=== PATIENT | female | born 1945 ===

== ENCOUNTER 2018-02-01 10:15 | Inpatient (IN) | payer MEDICARE, BC ==
[2018-02-01 10:15] VITALS: BMI 36.6
[2018-02-01] MEDS ORDERED: Sodium Chloride 0.9% 500 ML IV STA (10:50)
[2018-02-01 11:18] LABS: BASO % 0.9 % (0.0-2.0); EOS # 0.1 K/uL (0.0-0.7); EOS % 2.9 % (0.0-4.0); HEMOGLOBIN 13.7 g/dL (11.0-16.0); MEAN CELL VOLUME 92.6 fL (81.0-99.0); MEAN CORPUSCULAR HGB CONC 34.5 g/dL (33.0-37.0); MEAN PLATELET VOLUME 8.5 fL (7.2-11.7); MONO # 0.4 K/uL (0.0-0.8); MONO % 8.4 % (0.0-10.0); NEUT # 3.5 K/uL (1.8-7.0); NEUT % 67.8 % (50.0-75.0); RBC 4.27 Mil/uL (3.80-5.20); RED CELL DISTRIBUTION WIDTH 12.9 % (11.5-14.5); WHITE BLOOD COUNT 5.2 K/uL (4.8-10.8)
[2018-02-01 11:25] LABS: PROTHROMBIN TIME 11.3 SECONDS (9.7-12.2)
[2018-02-01 11:37] LABS: GFR AFRICAN-AMERICAN > 60; GFR NON-AFRICAN AMERICAN > 60
--- NOTE | 2018-02-01 11:48 | CT ---
PROCEDURE: CT HEAD WITHOUT CONTRAST. HISTORY: The the Dizziness COMPARISON: None available. TECHNIQUE: Axial computed tomography images were obtained through the head/brain without intravenous contrast. Radiation dose: Total exam DLP = 855.72 mGy-cm. This CT exam was performed using one or more of the following dose reduction techniques: Automated exposure control, adjustment of the mA and/or kV according to patient size, and/or use of iterative reconstruction technique. . FINDINGS: HEMORRHAGE: No acute parenchymal, subarachnoid or extra-axial there hemorrhage. BRAIN: There are a few scattered chronic appearing subcortical ischemic changes both cerebral hemispheres. In addition, there also appears to be some very minimal chronic periventricular white matter ischemic changes. Few tiny chronic bilateral basal nuclei lacunar type infarcts also noted. . Note that the possibility of a small hyperacute infarct cannot be excluded on this exam. Moderate generalized volume loss. . VENTRICLES: No obstructive hydrocephalus. CALVARIUM: There are no acute calvarial fractures. PARANASAL SINUSES: Frontal sinuses are underpneumatized/hypoplastic. . Remaining visualized paranasal sinuses well-developed. No fluid levels seen to suggest acute sinusitis. Minimal mucosal thickening noted within a few ethmoid air cells. MASTOID AIR CELLS: Unremarkable as visualized. No inflammatory changes. OTHER FINDINGS: None. IMPRESSION: No acute intracranial hemorrhage. Mild chronic white matter and basal nuclei ischemic changes as described. . Moderate volume loss.
--- NOTE | 2018-02-01 11:51 | C.PDOC ---
History Of Present Illness 72 y/o female brought to ED by EMS and daughter for evaluation of dizziness developed prior to arrival. As per daughter homemaker called and reported patient was feeling dizzy. At ED patient is not following commands and moving spontaneously. Patient poor historian. HPI limited Time Seen by Provider: 02/01/18 10:25 Chief Complaint (Nursing): Dizziness/Lightheaded History Per: EMS, Family History/Exam Limitations: clinical condition Onset/Duration Of Symptoms: Hrs Current Symptoms Are (Timing): Still Present Past Medical History Reviewed: Historical Data, Nursing Documentation, Vital Signs Vital Signs: Last Vital Signs Temp 97.5 F L 02/01/18 15:00 Pulse 52 L 02/01/18 15:00 Resp 20 02/01/18 15:00 BP 156/78 H 02/01/18 15:00 Pulse Ox 97 02/01/18 18:18 - Medical History PMH: Alzheimer's Disease, Arthritis, Asthma, Diverticulitis, HTN, Hypothyroidism , TIA Surgical History: Tonsillectomy - [facility] Procedures GAIT TRAINING/FUNCTIONAL AMBULATION TREATMENT (10/23/15) HOME MANAGEMENT TREATMENT (10/23/15) INJECT/INFUSE NEC (04/29/15) REPLACE OF L KNEE JT WITH SYNTH SUB, CEMENT, OPEN APPROACH (10/21/15) THERAPEUTIC EXERCISE TREATMENT OF MUSCULOSK LOW BACK/LE (10/23/15) Family History: States: No Known Family Hx - Social History Hx Alcohol Use: No Hx Substance Use: No - Immunization History Hx Tetanus Toxoid Vaccination: No Hx Influenza Vaccination: No Hx Pneumococcal Vaccination: No Review Of Systems Review Of Systems: ROS cannot be obtained secondary to pt's inabilty to answer questions. Physical Exam - Physical Exam Appears: Non-toxic, Other (Uncomfortable) Skin: Warm, Dry, No Rash Head: Atraumatic, Normacephalic Eye(s): bilateral: Normal Inspection Oral Mucosa: Moist Cardiovascular: Rhythm Regular Respiratory: Normal Breath Sounds, No Rales, No Rhonchi, No Wheezing Gastrointestinal/Abdominal: Soft, No Tenderness, No Guarding, No Rebound Neurological/Psych: Eyes Open With Command, Inappropriate Response To Command, Other (Neuro deficit noted) ED Course And Treatment - Laboratory Results Result Diagrams: 02/01/18 11:11 02/01/18 11:11 ECG: Interpreted By Me ECG Rhythm: Sinus Bradycardia ECG Interpretation: No Acute Changes Rate From EC O2 Sat by Pulse Oximetry: 97 (RA) Pulse Ox Interpretation: Normal - Other Rad CXR X-Ray: Viewed By Me, Read By Radiologist Interpretation: Accession No. : [id number]. Patient Name / ID : JOSE EDUARDO MONET / [id number]. Exam Date : 02/01/2018 11:01:12 ( Approved ). Study Comment : Sex / Age : F / 72Y. Creator : Bryan Shipley MD. Dictator : Bryan Shipley MD. Instructor Watch Assembly : [employer] Machine Assembler : Bryan Shipley MD. Approver2 : Report Date : 02/01/2018 12:21:44. My Comment : . PROCEDURE: CHEST RADIOGRAPH, 1 VIEW. HISTORY: dizzy. COMPARISON: None available. FINDINGS: LUNGS: No acute pulmonary disease appreciated bilaterally. PLEURA: No pneumothorax or pleural fluid seen. CARDIOVASCULAR: Prominent cardiac silhouette. Mild cardiomegaly not excluded. Frontal technique likely magnifies cardiac silhouette at least somewhat. OSSEOUS STRUCTURES: Right 7th rib fracture of indeterminate age in this single frontal view. VISUALIZED UPPER ABDOMEN: Normal. OTHER FINDINGS: None. IMPRESSION: Possible cardiomegaly. No pulmonary vascular congestion. No acute pulmonary disease appreciated bilaterally. Right 7th rib fracture noted laterally, age indeterminate. - CT Scan/US Head CT Other Rad Studies (CT/US): Read By Radiologist, Radiology Report Reviewed CT/US Interpretation: Accession No. : [id number]. Patient Name / ID : JOSE EDUARDO MONET / [id number]. Exam Date : 02/01/2018 11:35:30 ( Approved ). Study Comment : Sex / Age : F / 72Y. Creator : Ana Cristina Garza. Dictator : Instructor Watch Assembly : [employer] Machine Assembler : Richard Monge MD. Approver2 : Report Date : 11:38:06. My Comment : . PROCEDURE: CT HEAD WITHOUT CONTRAST. HISTORY: The the Dizziness. COMPARISON: None available. TECHNIQUE: Axial computed tomography images were obtained through the head/brain without intravenous contrast. Radiation dose: Total exam DLP = 855.72 mGy-cm. This CT exam was performed using one or more of the following dose reduction techniques: Automated exposure control, adjustment of the mA and/or kV according to patient size, and/or use of iterative reconstruction technique. . FINDINGS: HEMORRHAGE: No acute parenchymal, subarachnoid or extra-axial there hemorrhage. BRAIN: There are a few scattered chronic appearing subcortical ischemic changes both cerebral hemispheres. In addition, there also appears to be some very minimal chronic periventricular white matter ischemic changes. Few tiny chronic bilateral basal nuclei lacunar type infarcts also noted. . Note that the possibility of a small hyperacute infarct cannot be excluded on this exam. Moderate generalized volume loss. . VENTRICLES: No obstructive hydrocephalus. CALVARIUM: There are no acute calvarial fractures. PARANASAL SINUSES: Frontal sinuses are underpneumatized/hypoplastic. . Remaining visualized paranasal sinuses well-developed. No fluid levels seen to suggest acute sinusitis. Minimal mucosal thickening noted within a few ethmoid air cells. MASTOID AIR CELLS: Unremarkable as visualized. No inflammatory changes. OTHER FINDINGS: None. IMPRESSION: No acute intracranial hemorrhage. Mild chronic white matter and basal nuclei ischemic changes as described. . Moderate volume loss. Progress Note: Plan: EKG, CXR, UA ordered. Antivert and IV fluids administered. - Physician Consult Information Physician Contacted: Luiza Evans Outcome Of Conversation: accepted to [facility] for observation Disposition - Disposition Disposition: HOSPITALIZED Disposition Time: 14:08 Condition: FAIR - Clinical Impression Clinical Impression: Dizziness, Chest pain - PA / WAIT STAFF / Resident Statement MD/DO has reviewed & agrees with the documentation as recorded. - Scribe Statement The provider has reviewed the documentation as recorded by the Scribe Maricsa Arzate All medical record entries made by the Scribe were at my direction and personally dictated by me. I have reviewed the chart and agree that the record accurately reflects my personal performance of the history, physical exam, medical decision making, and the department course for this patient. I have also personally directed, reviewed, and agree with the discharge instructions and disposition. Decision To Admit - Pt Status Changed To: Hospital Disposition Of: Observation - . Bed Request Type: Telemetry Admitting Physician: Luiza Evans Patient Diagnosis: Dizziness, Chest pain
--- NOTE | 2018-02-01 12:23 | RAD ---
PROCEDURE: CHEST RADIOGRAPH, 1 VIEW HISTORY: dizzy COMPARISON: None available. FINDINGS: LUNGS: No acute pulmonary disease appreciated bilaterally. PLEURA: No pneumothorax or pleural fluid seen. CARDIOVASCULAR: Prominent cardiac silhouette. Mild cardiomegaly not excluded. Frontal technique likely magnifies cardiac silhouette at least somewhat. OSSEOUS STRUCTURES: Right 7th rib fracture of indeterminate age in this single frontal view. VISUALIZED UPPER ABDOMEN: Normal. OTHER FINDINGS: None. IMPRESSION: Possible cardiomegaly. No pulmonary vascular congestion. No acute pulmonary disease appreciated bilaterally. Right 7th rib fracture noted laterally, age indeterminate.
[2018-02-01 12:27] LABS: SQUAMOUS EPITHIAL 2 /hpf (0-5); URINE BACTERIA RARE (<OCC); URINE BILIRUBIN NEGATIVE (NEGATIVE); URINE BLOOD 2+ (NEGATIVE); URINE CLARITY Clear (Clear); URINE COLOR Straw (YELLOW); URINE GLUCOSE (UA) NORMAL (Normal); URINE LEUKOCYTE ESTERASE TRACE Leu/uL (Negative); URINE PROTEIN NEGATIVE (NEGATIVE); URINE UROBILINOGEN NORMAL mg/dL (0.2-1.0)
--- NOTE | 2018-02-01 17:17 | RAD ---
PROCEDURE: Left Knee Radiographs. HISTORY: Pain. COMPARISON: None. FINDINGS: BONES: Left total knee arthroplasty. Hardware appears intact without evidence of loosening or infection. There is satisfactory alignment JOINTS: As above JOINT EFFUSION: None. OTHER FINDINGS: None. IMPRESSION: Left total knee arthroplasty. Hardware intact without evidence of failure.
[2018-02-01 19:39] LABS: ALB/GLOB RATIO 1.2 (1.0-2.1); ALBUMIN 3.3 g/dL (3.5-5.0); ALT/SGPT 25 U/L (9-52); AST/SGOT 21 U/L (14-36); BLOOD UREA NITROGEN 14 mg/dL (7-17); CALCIUM 8.7 mg/dl (8.6-10.4)
--- NOTE | 2018-02-01 19:40 | CP.PCM.HP ---
Present on Admission - Present on Admission Any Indicators Present on Admission: No Past Patient History - Infectious Disease Hx of Infectious Diseases: None - Tetanus Immunizations Tetanus Immunization: Unknown - Past Medical History & Family History Past Medical History?: Yes - Past Social History Smoking Status: Never Smoked - CARDIAC Hx Hypertension: Yes - PULMONARY Hx Asthma: Yes - NEUROLOGICAL Hx Alzheimer's Disease: Yes Hx Transient Ischemic Attacks (TIA): Yes - HEENT Hx HEENT Problems: No - RENAL Hx Chronic Kidney Disease: No - ENDOCRINE/METABOLIC Hx Hypothyroidism: Yes - HEMATOLOGICAL/ONCOLOGICAL Hx Blood Disorders: No Hx Human Immunodeficiency Virus (HIV): No - INTEGUMENTARY Hx Dermatological Problems: No - MUSCULOSKELETAL/RHEUMATOLOGICAL Hx Arthritis: Yes - GASTROINTESTINAL Hx Diverticulitis: Yes - GENITOURINARY/GYNECOLOGICAL Hx Genitourinary Disorders: No - PSYCHIATRIC Hx Substance Use: No - SURGICAL HISTORY Hx Tonsillectomy: Yes - ANESTHESIA Hx Anesthesia: Yes Hx Anesthesia Reactions: No Meds Allergies/Adverse Reactions: Allergies Allergy/AdvReac Type Severity Reaction Status Date / Time terbinafine HCl Allergy RASH Verified 02/01/18 10:22 [From Lamisil] famciclovir [From Famvir] AdvReac SHORTNESS Verified 02/01/18 10:46 OF BREATH Physical Exam - Constitutional Appears: Well - Head Exam Head Exam: NORMAL INSPECTION - Eye Exam Eye Exam: Normal appearance - ENT Exam ENT Exam: Mucous Membranes Moist - Respiratory Exam Respiratory Exam: Decreased Breath Sounds - Cardiovascular Exam Cardiovascular Exam: REGULAR RHYTHM, +S1, +S2 - GI/Abdominal Exam GI & Abdominal Exam: Diminished Bowel Sounds - Rectal Exam Rectal Exam: Deferred Results - Vital Signs Recent Vital Signs: Last Vital Signs Temp 97.5 F L 02/01/18 15:00 Pulse 52 L 02/01/18 18:00 Resp 20 02/01/18 15:00 BP 156/78 H 02/01/18 15:00 Pulse Ox 97 02/01/18 18:19 - Labs Result Diagrams: 02/01/18 11:11 02/01/18 11:11 Labs: Laboratory Results - last 24 hr 02/01/18 02/01/18 02/01/18 10:24 11:11 11:11 WBC 5.2 RBC 4.27 Hgb 13.7 Hct 39.6 MCV 92.6 MCH 32.0 H MCHC 34.5 RDW 12.9 Plt Count 212 MPV 8.5 Neut % (Auto) 67.8 Lymph % (Auto) 20.0 Cuming % (Auto) 8.4 Eos % (Auto) 2.9 Baso % (Auto) 0.9 Neut # (Auto) 3.5 Lymph # (Auto) 1.0 Cuming # (Auto) 0.4 Eos # (Auto) 0.1 Baso # (Auto) 0.0 PT INR APTT Sodium 144 Potassium 4.3 Chloride 104 Carbon Dioxide 31 H Anion Gap 13 BUN 14 Creatinine 0.9 Est GFR ( Amer) > 60 Est GFR (Non-Af Amer) > 60 POC Glucose (mg/dL) 94 Random Glucose 110 H Calcium 8.7 Total Bilirubin 0.4 AST 21 ALT 25 Alkaline Phosphatase 57 Total Creatine Kinase 79 CK-MB (Mass) 1.56 Troponin I < 0.0120 Total Protein 6.2 L Albumin 3.3 L Globulin 2.8 Albumin/Globulin Ratio 1.2 Urine Color Urine Clarity Urine pH Ur Specific [place] Urine Protein Urine Glucose (UA) Urine Ketones Urine Blood Urine Nitrate Urine Bilirubin Urine Urobilinogen Ur Leukocyte Esterase Urine WBC (Auto) Urine RBC (Auto) Ur Squamous Epith Cells Urine Bacteria 02/01/18 02/01/18 02/01/18 11:11 12:07 17:34 WBC RBC Hgb Hct MCV MCH MCHC RDW Plt Count MPV Neut % (Auto) Lymph % (Auto) [place] % (Auto) Eos % (Auto) Baso % (Auto) Neut # (Auto) Lymph # (Auto) [place] # (Auto) Eos # (Auto) Baso # (Auto) PT 11.3 INR 1.0 APTT 40 H Sodium Potassium Chloride Carbon Dioxide Anion Gap BUN Creatinine Est GFR ( Amer) Est GFR (Non-Af Amer) POC Glucose (mg/dL) 98 Random Glucose Calcium Total Bilirubin AST ALT Alkaline Phosphatase Total Creatine Kinase CK-MB (Mass) Troponin I Total Protein Albumin Globulin Albumin/Globulin Ratio Urine Color Straw Urine Clarity Clear Urine pH 7.0 Ur Specific [place] 1.008 Urine Protein Negative Urine Glucose (UA) Normal Urine Ketones Negative Urine Blood 2+ H Urine Nitrate Negative Urine Bilirubin Negative Urine Urobilinogen Normal Ur Leukocyte Esterase Trace Urine WBC (Auto) 2 Urine RBC (Auto) 9 H Ur Squamous Epith Cells 2 Urine Bacteria Rare 02/01/18 19:19 WBC RBC Hgb Hct MCV MCH MCHC RDW Plt Count MPV Neut % (Auto) Lymph % (Auto) [place] % (Auto) Eos % (Auto) Baso % (Auto) Neut # (Auto) Lymph # (Auto) [place] # (Auto) Eos # (Auto) Baso # (Auto) PT INR APTT Sodium Potassium Chloride Carbon Dioxide Anion Gap BUN Creatinine Est GFR ( Amer) Est GFR (Non-Af Amer) POC Glucose (mg/dL) Random Glucose Calcium Total Bilirubin AST ALT Alkaline Phosphatase Total Creatine Kinase 79 CK-MB (Mass) Troponin I Total Protein Albumin Globulin Albumin/Globulin Ratio Urine Color Urine Clarity Urine pH Ur Specific [place] Urine Protein Urine Glucose (UA) Urine Ketones Urine Blood Urine Nitrate Urine Bilirubin Urine Urobilinogen Ur Leukocyte Esterase Urine WBC (Auto) Urine RBC (Auto) Ur Squamous Epith Cells Urine Bacteria Assessment & Plan (1) Chest pain Status: Acute (2) Dizziness Status: Acute (3) ANNALISE (acute kidney injury) Status: Acute (4) Abdominal pain Status: Acute (5) Altered mental status Status: Acute (6) DVT prophylaxis Status: Acute (7) Delirium Status: Acute (8) Diverticular disease Status: Acute (9) Knee pain Status: Acute (10) UTI (urinary tract infection) Status: Acute (11) HTN (hypertension) Status: Chronic (12) Hypothyroidism Status: Chronic (13) Lewy body dementia with behavioral disturbance Status: Chronic
[2018-02-01 19:50] LABS: CK-MB 1.18 ng/mL (0.0-3.38)
--- NOTE | 2018-02-02 02:36 | CON ---
DATE: REASON FOR CONSULTATION: Dizziness. HISTORY OF PRESENT ILLNESS: The patient is a 72-year-old female who has a history of profound hypothyroidism and history of dementia, presented because of dizziness. The patient was noted to be in sinus bradycardia in the 50s. The patient denies any fall; however, according to the homemaker, the patient fell a few days ago at home. The patient had left knee surgery in [place], [place] about 2 years ago according to the patient and her leg. The patient denies any chest pain. SOCIAL HISTORY: The patient is a former smoker. She lives with her partner with the help of a homemaker 24 hours a day. MEDICATIONS: The patient's home medications include Namenda, Tylenol, baby aspirin, Lipitor 40 mg once a day, Lovenox 40 mg subcutaneous once a day, Synthroid 150 mcg once a day, Protonix 40 mg once a day, Cozaar 100 mg once a day. REVIEW OF SYSTEMS: No headache. No fever or chills. No nausea or vomiting. No diarrhea. No chest pain. PHYSICAL EXAMINATION: GENERAL: The patient is an elderly female who does not appear to be in any distress. VITAL SIGNS: Blood pressure 126/73, heart rate 78, temperature 98, respirations 18. HEENT: Normocephalic. CHEST: Clear. HEART: S1 and S2, regular, a grade 3/6 ejection systolic murmur over left sternal border. ABDOMEN: Soft. EXTREMITIES: No edema. LABORATORY DATA: SMA-7; sodium 142, potassium 4.2, chloride 103, CO2 27, glucose 97, BUN 15, creatinine 0.7. One set of troponin is negative. PTT 40. INR is 1. Hemoglobin and hematocrit is 15.7 and 39.6. White count and platelet count are within normal limits. EKG revealed sinus bradycardia at the rate of 57, otherwise normal EKG. Echocardiographic study performed March of last year at [facility] revealed normal ejection fraction in the range of 65 to 70%. The aortic valve was mildly sclerotic. There was no valvular aortic stenosis at that time. ASSESSMENT: 1. Dizziness and sinus bradycardia. 2. Hypothyroidism. 3. Hypertension. 4. Aortic sclerosis. RECOMMENDATIONS: Continue aspirin 81 mg once a day, Cozaar 100 mg once a day, Lovenox 40 mg subcutaneous once a day, Protonix 40 mg once a day, Synthroid 150 mcg once a day. Obtain an echocardiogram and continue telemetry monitoring. Obtain TSH level and consider Endocrine evaluation as the patient is profoundly hypothyroid. The patient's most recent venous Doppler of lower extremity performed in 09/2017 was negative for DVT. Francesco Santizo MD
[2018-02-02 05:56] LABS: HEMOGLOBIN 13.3 g/dL (11.0-16.0); MEAN CORPUSCULAR HGB CONC 34.5 g/dL (33.0-37.0); MEAN PLATELET VOLUME 8.4 fL (7.2-11.7); RED CELL DISTRIBUTION WIDTH 13.2 % (11.5-14.5)
[2018-02-02 05:57] LABS: MEAN CELL VOLUME 92.8 fL (81.0-99.0); RBC 4.14 Mil/uL (3.80-5.20); WHITE BLOOD COUNT 5.6 K/uL (4.8-10.8)
[2018-02-02] MEDS: Levothyroxine 150 MCG TAB PO SCH (06:00)
[2018-02-02 06:18] LABS: CK-MB 0.87 ng/mL (0.0-3.38)
[2018-02-02 06:39] LABS: BLOOD UREA NITROGEN 18 mg/dL (7-17); CALCIUM 8.8 mg/dl (8.6-10.4); GFR AFRICAN-AMERICAN > 60; GFR NON-AFRICAN AMERICAN > 60
[2018-02-02] MEDS: Pantoprazole 40 mg EC Tab PO SCH (09:41)
[2018-02-02] MEDS: Enoxaparin 40 mg Syringe SC SCH (09:42)
--- NOTE | 2018-02-02 10:14 | CP.PCM.PN ---
Subjective - Date & Time of Evaluation Date of Evaluation: 02/02/18 Time of Evaluation: 09:57 - Subjective Subjective: PGY-[address] Evans's service: Pt seen and examined at bedside. Nursing reports no acute events overnight. Pt found lying in bed with associate software development engineer at bedside. Patient reports pain in neck that worsened after fall at home. Reports persistent dizziness when standing. Patient reports pain with palpation of her chest. No substernal, [id number] chest pain. Objective - Vital Signs/Intake and Output Vital Signs (last 24 hours): Temp Pulse Resp BP Pulse Ox 97.6 F 57 L 20 158/74 H 96 02/02/18 08:45 02/02/18 08:45 02/02/18 08:45 02/02/18 08:45 02/02/18 08:45 - Medications Medications: Current Medications Aspirin (Aspirin Chewable) 81 mg PO DAILY ON LICENSE OF [facility] Last Admin: 02/02/18 09:41 Dose: 81 mg Enoxaparin Sodium (Lovenox) 40 mg SC DAILY ON LICENSE OF [facility] Last Admin: 02/02/18 09:42 Dose: 40 mg Levothyroxine Sodium (Synthroid) 150 mcg PO DAILY@0630 ON LICENSE OF [facility] Last Admin: 02/02/18 06:00 Dose: 150 mcg Losartan Potassium (Cozaar) 100 mg PO DAILY ON LICENSE OF [facility] Last Admin: 02/02/18 09:41 Dose: 100 mg Memantine (Namenda) 5 mg PO BID ON LICENSE OF [facility] Last Admin: 02/02/18 09:41 Dose: 5 mg Pantoprazole Sodium (Protonix Ec Tab) 40 mg PO DAILY ON LICENSE OF [facility] Last Admin: 02/02/18 09:41 Dose: 40 mg - Labs Labs: 02/02/18 05:48 02/02/18 05:48 PT 11.3 SECONDS (9.7-12.2) 02/01/18 11:11 INR 1.0 02/01/18 11:11 APTT 40 SECONDS (21-34) H 02/01/18 11:11 - Constitutional Appears: Non-toxic, No Acute Distress - Head Exam Head Exam: ATRAUMATIC, NORMAL INSPECTION - Eye Exam Eye Exam: EOMI. absent: Scleral icterus Pupil Exam: PERRL - ENT Exam ENT Exam: Mucous Membranes Moist - Respiratory Exam Respiratory Exam: Clear to Ausculation Bilateral, NORMAL BREATHING PATTERN - Cardiovascular Exam Cardiovascular Exam: REGULAR RHYTHM, +S1, +S2 - GI/Abdominal Exam GI & Abdominal Exam: Soft, Normal Bowel Sounds. absent: Tenderness - Extremities Exam Extremities Exam: absent: Normal Inspection (Surgical scars) Additional comments: Swollen left leg, warm to touch - Back Exam Back Exam: absent: CVA tenderness (L), CVA tenderness (R) - Neurological Exam Neurological Exam: Alert, Awake, Oriented x3 - Psychiatric Exam Psychiatric exam: Normal Affect, Normal Mood - Skin Skin Exam: Dry, Normal Color Assessment and Plan - Assessment and Plan (Free Text) Plan: Chest pain Admit to tele Dr. Mccain, Cardio sql consultant Troponins negative x 3 EKG (02/01/18) Sinus bradycardia @ [address]/T wave changes. f/u ECHO ASA 81mg PO Daily Dizziness Ct Head (02/01/18): No acute intracranial hemorrhage. Mild chronic white matter changes. Basal nuclei ischemic changes as described. Moderate volume loss (see full report) CXR (02/01/18): No pulm vasc congestion. NAD. Right 7th rib fracture, age indeterminate. EKG (02/01/18) Sinus bradycardia @ [address]/T wave changes. Troponins negative x 3 Carotid US negative for acute blockage UA negative Antivert 25mg PO Q8H PRN f/u CT cervical/thoracic spine to r/o injury from fall Symptomatic Bradycardia EKG (02/01/18) Sinus bradycardia @ [address]/T wave changes HR 48, 50 Patient dizzy when standing f/u reccs from Dr. Mccain Swollen left leg History of knee surgery Afebrile, No WBC Xray left knee (02/01/18): Lt knee arthroplasty. Hardware intact no evidence of failure. Tylenol 650mg PO Q6H PRN for pain f/u venous doppler b/l Dementia Oriented to only person - "for years" per live-in associate software development engineer Namenda 5mg PO BID Hypertension Elevated this AM Cozaar 100mg PO Daily Hypothyroidism Synthroid 150mcg PO Daily Prophylaxis SCD C/I due to left leg swelling Protonix 40mg PO Daily Lovenox 40mg SC daily Christian Schwarz PGY-[address] Evans
--- NOTE | 2018-02-02 13:13 | CP.PCM.PN ---
Subjective - Date & Time of Evaluation Date of Evaluation: 02/02/18 Time of Evaluation: 11:00 - Subjective Subjective: clinically same Objective - Vital Signs/Intake and Output Vital Signs (last 24 hours): Temp Pulse Resp BP Pulse Ox 97.6 F 57 L 20 158/74 H 96 02/02/18 08:45 02/02/18 08:45 02/02/18 08:45 02/02/18 08:45 02/02/18 08:45 - Medications Medications: Current Medications Acetaminophen (Tylenol 325mg Tab) 650 mg PO Q6H PRN PRN Reason: Pain, Mild (1-3) Aspirin (Aspirin Chewable) 81 mg PO DAILY [facility] Last Admin: 02/02/18 09:41 Dose: 81 mg Enoxaparin Sodium (Lovenox) 40 mg SC DAILY [facility] Last Admin: 02/02/18 09:42 Dose: 40 mg Levothyroxine Sodium (Synthroid) 150 mcg PO DAILY@0630 [facility] Last Admin: 02/02/18 06:00 Dose: 150 mcg Losartan Potassium (Cozaar) 100 mg PO DAILY [facility] Last Admin: 02/02/18 09:41 Dose: 100 mg Memantine (Namenda) 5 mg PO BID [facility] Last Admin: 02/02/18 09:41 Dose: 5 mg Pantoprazole Sodium (Protonix Ec Tab) 40 mg PO DAILY [facility] Last Admin: 02/02/18 09:41 Dose: 40 mg - Labs Labs: 02/02/18 05:48 02/02/18 05:48 PT 11.3 SECONDS (9.7-12.2) 02/01/18 11:11 INR 1.0 02/01/18 11:11 APTT 40 SECONDS (21-34) H 02/01/18 11:11 - Constitutional Appears: Well - Head Exam Head Exam: ATRAUMATIC, NORMAL INSPECTION, NORMOCEPHALIC - Eye Exam Eye Exam: EOMI, Normal appearance, PERRL Pupil Exam: NORMAL ACCOMODATION, PERRL - ENT Exam ENT Exam: Mucous Membranes Moist, Normal Exam - Neck Exam Neck Exam: Full ROM, Normal Inspection. absent: Lymphadenopathy - Respiratory Exam Respiratory Exam: Decreased Breath Sounds - Cardiovascular Exam Cardiovascular Exam: REGULAR RHYTHM, +S1, +S2 - GI/Abdominal Exam GI & Abdominal Exam: Soft, Diminished Bowel Sounds - Rectal Exam Rectal Exam: Deferred Assessment and Plan (1) Chest pain Status: Acute (2) Dizziness Status: Acute (3) ANNALISE (acute kidney injury) Status: Acute (4) Abdominal pain Status: Acute (5) Altered mental status Status: Acute (6) DVT prophylaxis Status: Acute (7) Delirium Status: Acute (8) Diverticular disease Status: Acute (9) Knee pain Status: Acute (10) UTI (urinary tract infection) Status: Acute (11) HTN (hypertension) Status: Chronic (12) Hypothyroidism Status: Chronic (13) Lewy body dementia with behavioral disturbance Status: Chronic
--- NOTE | 2018-02-02 13:17 | VASCLAB ---
PROCEDURE: HISTORY: DIZZINESS COMPARISON: None available. TECHNIQUE: Grayscale and duplex Doppler evaluation of the cervical carotid and vertebral arteries were performed. The common carotid, carotid bifurcations and cervical Internal Carotid Artery (ICA) and proximal External Carotid Artery (ECA) were evaluated. The vertebral arteries were evaluated for gross patency and flow direction. Report prepared by CAROLYN Avery FINDINGS: RIGHT CAROTID ARTERIES: 1. Common Carotid Artery: No significant focal plaque formation of the right common carotid artery. Maximum Peak Systolic velocity: 53 cm/sec: End-diastolic velocity 13 cm/sec. 2. Carotid Bifurcation: plaque formation. Maximum Peak Systolic velocity: 47 cm/sec: End-diastolic velocity 6 cm/sec. 3. Internal Carotid Artery: Plaque description: 3.1. Proximal Segment: Peak systolic velocity 57 cm/sec: End-diastolic velocity 14 cm/sec - % stenosis 0-15% 3.2. Middle Segment: Peak systolic velocity 54 cm/sec: End-diastolic velocity 9 cm/sec - % stenosis 0-15% 3.3. Distal Segment: Peak systolic velocity 50 cm/sec: End-diastolic velocity 13 cm/sec - % stenosis 0-15% 4. External Carotid Artery: No significant focal plaque formation. Peak systolic velocity 102 cm/sec 5. ICA/CCA Ratio: 1.1 LEFT CAROTID ARTERIES: 1. Common Carotid Artery: No significant focal plaque formation of the left common carotid artery. Maximum Peak Systolic velocity: 54 cm/sec: End-diastolic velocity 9 cm/sec. 2. Carotid Bifurcation: plaque formation. Maximum Peak Systolic velocity: 28 cm/sec: End-diastolic velocity 6 cm/sec. 3. Internal Carotid Artery: Plaque description: 3.1. Proximal Segment: Peak systolic velocity 54 cm/sec: End-diastolic velocity 14 cm/sec - % stenosis 0-15% 3.2. Middle Segment: Peak systolic velocity 55 cm/sec: End-diastolic velocity 15 cm/sec - % stenosis 0-15% 3.3. Distal Segment: Peak systolic velocity 56 cm/sec: End-diastolic velocity 19 cm/sec - % stenosis 0-15% 4. External Carotid Artery: No significant focal plaque formation. Peak systolic velocity 114 cm/sec 5. ICA/CCA Ratio: 1.0 VERTEBRAL ARTERIES: 1. Right Vertebral Artery: The right vertebral artery flow direction is antegrade. 2. Left Vertebral Artery: The left vertebral artery flow direction is antegrade. OTHER FINDINGS: 1. Right Brachial Blood pressure: 110 mmHg. 2. Left Brachial Blood pressure: 120 mmHg. IMPRESSION: RIGHT: Duplex scan does not suggest hemodynamically significant stenosis of the right extracranial carotid arteries. LEFT: Duplex scan does not suggest hemodynamically significant stenosis of the left extracranial carotid arteries.
--- NOTE | 2018-02-02 17:30 | CT ---
PROCEDURE: CT Cervical Spine without contrast HISTORY: neck pain; hx of fall COMPARISON: None available. TECHNIQUE: Axial computed tomography images were obtained of the cervical spine without the use of intravenous contrast. Coronal and sagittal reformatted images were created and reviewed. Radiation dose: Total exam DLP = 523.54 mGy-cm. This CT exam was performed using one or more of the following dose reduction techniques: Automated exposure control, adjustment of the mA and/or kV according to patient size, and/or use of iterative reconstruction technique. FINDINGS: VERTEBRAE: There straightening of the cervical curvature without fracture or spondylolisthesis identified. Degenerative changes seen relatively advanced at the C1-2 articulation with the craniocervical junction intact. DISCS/SPINAL CANAL/NEURAL FORAMINA: No significant central canal or neural foraminal stenosis. Discs heights are grossly preserved. PARASPINAL SOFT TISSUES: Unremarkable. OTHER FINDINGS: None. IMPRESSION: Straightened cervical curvature with limited multilevel spondylosis convert highly anterior in location. No apparent fracture or spondylolisthesis identified.
--- NOTE | 2018-02-02 18:14 | CT ---
PROCEDURE: CT Thoracic Spine without contrast HISTORY: neck pain; hx of fall COMPARISON: None. TECHNIQUE: Axial computed tomography images were obtained of the thoracic spine without intravenous contrast. Coronal and sagittal reformatted images were created and reviewed. Radiation dose: Total exam DLP = 1035.75 mGy-cm. This CT exam was performed using one or more of the following dose reduction techniques: Automated exposure control, adjustment of the mA and/or kV according to patient size, and/or use of iterative reconstruction technique. FINDINGS: VERTEBRAE: Unremarkable. No fracture. Normal alignment. DISCS/SPINAL CANAL/NEURAL FORAMINA: Within the limits of the CT technique, no disc herniation seen. No central canal or neural foraminal stenosis.. PARASPINAL SOFT TISSUES: Unremarkable. OTHER FINDINGS: Unremarkable. IMPRESSION: No evidence of fracture or dislocation.
--- NOTE | 2018-02-03 00:32 | PN ---
DATE: 02/02/2018 SUBJECTIVE: The patient denies any dizziness. She is confused to place. PHYSICAL EXAMINATION: VITAL SIGNS: Blood pressure 136/82, heart rate 55, temperature 97.5 and respirations 20. HEENT: Normocephalic. CHEST: Clear. HEART: S1 and S2 regular. EXTREMITIES: 1+ pitting edema with swelling in the left knee. LABORATORY DATA: Today's SMA-7 is within normal limits except for BUN of 18. Two sets of troponin's are negative. TSH level is within normal limits. Hemoglobin, hematocrit, white count and platelet count today are within normal limits. Thoracic spine CT scan, no evidence of fracture or dislocation. Cervical spine CT scan straightened cervical curvature with limited multilevel spondylosis. No apparent fracture or spondylolisthesis identified. Carotid Doppler does not suggest hemodynamically significant stenosis of the extracranial carotid arteries. Left knee x-ray, left total knee arthroplasty, hardware intact without evidence of failure. ASSESSMENT: 1. Mild sinus bradycardia. 2. Dizziness on admission and history of patient fall. 3. Alzheimer's dementia. 4. Hypothyroidism, which is currently controlled. RECOMMENDATIONS: Continue current aspirin 81 mg once a day, Cozaar at 100 mg once a day, Lovenox at 40 mg subcutaneous once a day, Namenda at 5 mg twice a day, Protonix at 40 mg p.o. once a day, Synthroid at 150 mcg once a day, Antivert 25 mg every 8 hours. I will review the echocardiographic study that was performed today. Francesco Santizo MD
[2018-02-03] MEDS: Levothyroxine 150 MCG TAB PO SCH (06:29)
[2018-02-03] MEDS: Pantoprazole 40 mg EC Tab PO SCH (09:03)
[2018-02-03] MEDS: Enoxaparin 40 mg Syringe SC SCH (09:04)
[2018-02-03 12:03] LABS: BASO % 0.8 % (0.0-2.0); EOS # 0.2 K/uL (0.0-0.7); EOS % 2.6 % (0.0-4.0); HEMOGLOBIN 13.2 g/dL (11.0-16.0); LYMPH % 17.1 % (20.0-40.0); MEAN CELL VOLUME 92.6 fL (81.0-99.0); MEAN CORPUSCULAR HEMOGLOBIN 32.1 pg (27.0-31.0); MEAN CORPUSCULAR HGB CONC 34.6 g/dL (33.0-37.0); MEAN PLATELET VOLUME 8.6 fL (7.2-11.7); MONO # 0.6 K/uL (0.0-0.8); MONO % 10.1 % (0.0-10.0); NEUT % 69.4 % (50.0-75.0); RBC 4.11 Mil/uL (3.80-5.20); RED CELL DISTRIBUTION WIDTH 13.1 % (11.5-14.5); WHITE BLOOD COUNT 5.7 K/uL (4.8-10.8)
[2018-02-03 12:11] LABS: ALB/GLOB RATIO 1.2 (1.0-2.1); ALBUMIN 3.5 g/dL (3.5-5.0); ALT/SGPT 24 U/L (9-52); AST/SGOT 20 U/L (14-36); BLOOD UREA NITROGEN 16 mg/dL (7-17); CALCIUM 8.8 mg/dl (8.6-10.4); GFR AFRICAN-AMERICAN > 60; GFR NON-AFRICAN AMERICAN > 60
--- NOTE | 2018-02-03 12:29 | CARD ---
APPROVED REPORT EXAM: Two-dimensional and M-mode echocardiogram with Doppler and color Doppler. INDICATION Dizziness and Vertigo Aortic Valve Disease Chest Pain RISK FACTORS Hypertension 2D DIMENSIONS IVSd1.1 (0.7-1.1cm)LVDd4.1 (3.9-5.9cm) LVOT Diameter1.8 (1.8-2.4cm)PWd1.1 (0.7-1.1cm) LVDs2.4 (2.5-4.0cm)FS (%) 41.3 % LVEF (%)72.6 (>50%) M-Mode DIMENSIONS Left Atrium (MM)4.19 (2.5-4.0cm)Aortic Root3.03 (2.2-3.7cm) Aortic Cusp Exc.1.82 (1.5-2.0cm) Aortic Valve AoV Peak Hfufcwca683.8cm/sAoV VTI62.8cmAO Peak GR.36mmHg LVOT Peak Wnxiwdbn253.7cm/sLVOT VTI32.31cmAO Mean GR.19mmHg BRENT (VMAX)1.57ws1XVY (VTI)1.27cm2 Mitral Valve MV E Vvmgnavd904.8cm/sMV A Mutgpdln748.4cm/sE/A ratio1.0 TDI E/Lateral E'0.0E/Medial E'0.0 Tricuspid Valve TR Peak Tijiwtuj110os/sTR Peak Gr.46mhMlZBRX69joIw LEFT VENTRICLE The left ventricle is normal size. There is normal left ventricular wall thickness. The left ventricular function is normal. The left ventricular ejection fraction is within the normal range. There is normal LV segmental wall motion. Transmitral Doppler flow pattern is abnormal. RIGHT VENTRICLE The right ventricle is normal size. ATRIA The left atrium is mildly dilated. AORTIC VALVE There is moderate valvular aortic stenosis. MITRAL VALVE Mitral regurgitation is trace to mild. TRICUSPID VALVE There is mild to moderate tricuspid regurgitation. <Conclusion> Normal LV systolic function. Diastolic dysfunction. Dilated LA. Trace to mild MR. Moderate . Mild to moderate TR.
--- NOTE | 2018-02-03 16:12 | PN ---
DATE: 02/03/2018 SUBJECTIVE: The patient is confused to place. She denies any chest pain. OBJECTIVE: VITAL SIGNS: The lowest heart rate reported is 46 beats per minute. The blood pressure is 161/65, heart rate 55, temperature 98.4, respirations 20. HEENT: Normocephalic. CHEST: Clear. HEART: Sounds regular. EXTREMITIES: Left knee swelling. LABORATORY DATA: Hemoglobin, hematocrit, white count and platelet count are within normal limits. The patient's SMA-7 is within normal limits except for carbon dioxide of 31. Venous Doppler of lower extremity was performed; however, the report is still pending. Official report of the echocardiograph study revealed normal left ventricular systolic function, diastolic dysfunction, dilated left atrium, moderate aortic stenosis. Byle-pn-esqoqppd tricuspid insufficiency. According to the measurements taken, the aortic valve peak gradient was 36 mmHg. ASSESSMENT: 1. Moderate aortic stenosis. 2. Dizziness on admission and history of recent fall. 3. Alzheimer dementia. 4. Rule out deep venous thrombosis of the left lower extremity. 5. Hypothyroidism. 6. Mild sinus bradycardia. RECOMMENDATIONS: Continue aspirin 81 mg once a day, Cozaar 100 mg once a day, Lovenox 40 mg subcutaneous once a day, Synthroid at 150 mcg once a day. So far, there is no indication of permanent pacemaker placement and the patient is not suitable candidate for invasive cardiac workup with the intent of aortic valve replacement. I will obtain 24-hour Holter monitor. Francesco Santizo MD
[2018-02-04 02:20] VITALS: O2SAT 97
[2018-02-04] MEDS: Levothyroxine 150 MCG TAB PO SCH (06:35)
[2018-02-04 07:47] LABS: BASO # 0.1 K/uL (0.0-0.2); BASO % 1.3 % (0.0-2.0); EOS # 0.1 K/uL (0.0-0.7); HEMOGLOBIN 13.2 g/dL (11.0-16.0); LYMPH # 1.1 K/uL (1.0-4.3); LYMPH % 22.7 % (20.0-40.0); MEAN CELL VOLUME 92.2 fL (81.0-99.0); MEAN CORPUSCULAR HEMOGLOBIN 31.9 pg (27.0-31.0); MEAN CORPUSCULAR HGB CONC 34.6 g/dL (33.0-37.0); MEAN PLATELET VOLUME 8.4 fL (7.2-11.7); MONO # 0.5 K/uL (0.0-0.8); MONO % 10.4 % (0.0-10.0); NEUT # 3.1 K/uL (1.8-7.0); NEUT % 62.6 % (50.0-75.0); NRBC % 0.3 % (0.0-2.0); RBC 4.15 Mil/uL (3.80-5.20); RED CELL DISTRIBUTION WIDTH 13.3 % (11.5-14.5)
[2018-02-04 08:11] LABS: ALB/GLOB RATIO 1.3 (1.0-2.1); ALBUMIN 3.5 g/dL (3.5-5.0); ALT/SGPT 22 U/L (9-52); AST/SGOT 20 U/L (14-36); BLOOD UREA NITROGEN 17 mg/dL (7-17); CALCIUM 8.9 mg/dl (8.6-10.4); GFR AFRICAN-AMERICAN > 60; GFR NON-AFRICAN AMERICAN > 60
[2018-02-04] MEDS: Enoxaparin 40 mg Syringe SC SCH (09:22)
[2018-02-04] MEDS: Pantoprazole 40 mg EC Tab PO SCH (09:22)
--- NOTE | 2018-02-04 09:57 | CP.PCM.PN ---
Subjective - Date & Time of Evaluation Date of Evaluation: 02/04/18 Time of Evaluation: 09:45 - Subjective Subjective: PGY-[address] Evans's service: Pt seen and examined at bedside. Nursing reports no acute events overnight. Pt found sitting in chair at bedside. Denies acute complaints at this time, but ROS unreliable due to underlying dementia. Objective - Vital Signs/Intake and Output Vital Signs (last 24 hours): Temp Pulse Resp BP Pulse Ox 97.7 F 53 L 20 140/68 97 02/04/18 07:00 02/04/18 09:21 02/04/18 07:00 02/04/18 09:21 02/04/18 07:00 Intake and Output: 02/04/18 02/04/18 06:59 18:59 Intake Total 0 Balance 0 - Medications Medications: Current Medications Acetaminophen (Tylenol 325mg Tab) 650 mg PO Q6H PRN PRN Reason: Pain, Mild (1-3) Last Admin: 02/03/18 19:17 Dose: 650 mg Aspirin (Aspirin Chewable) 81 mg PO DAILY [facility] Last Admin: 02/04/18 09:22 Dose: 81 mg Enoxaparin Sodium (Lovenox) 40 mg SC DAILY [facility] Last Admin: 02/04/18 09:22 Dose: 40 mg Levothyroxine Sodium (Synthroid) 150 mcg PO DAILY@0630 [facility] Last Admin: 02/04/18 06:35 Dose: 150 mcg Losartan Potassium (Cozaar) 100 mg PO DAILY [facility] Last Admin: 02/04/18 09:22 Dose: 100 mg Meclizine HCl (Antivert) 25 mg PO Q8H PRN PRN Reason: Dizziness Last Admin: 02/02/18 17:11 Dose: 25 mg Memantine (Namenda) 5 mg PO BID [facility] Last Admin: 02/04/18 09:22 Dose: 5 mg Pantoprazole Sodium (Protonix Ec Tab) 40 mg PO DAILY [facility] Last Admin: 02/04/18 09:22 Dose: 40 mg - Labs Labs: 02/04/18 07:35 02/04/18 07:35 PT 11.3 SECONDS (9.7-12.2) 02/01/18 11:11 INR 1.0 02/01/18 11:11 APTT 40 SECONDS (21-34) H 02/01/18 11:11 - Additional Findings Additional findings: Constitutional Appears: Non-toxic, No Acute Distress - Head Exam Head Exam: ATRAUMATIC, NORMAL INSPECTION - Eye Exam Eye Exam: EOMI. absent: Scleral icterus Pupil Exam: PERRL - ENT Exam ENT Exam: Mucous Membranes Moist - Respiratory Exam Respiratory Exam: Clear to Ausculation Bilateral, NORMAL BREATHING PATTERN - Cardiovascular Exam Cardiovascular Exam: REGULAR RHYTHM, +S1, +S2 - GI/Abdominal Exam GI & Abdominal Exam: Soft, Normal Bowel Sounds. absent: Tenderness - Extremities Exam Extremities Exam: absent: Normal Inspection (Surgical scars) Additional comments: Swollen left leg, warm to touch - Back Exam Back Exam: absent: CVA tenderness (L), CVA tenderness (R) - Neurological Exam Neurological Exam: Alert, Awake, Oriented x3 - Psychiatric Exam Psychiatric exam: Normal Affect, Normal Mood - Skin Skin Exam: Dry, Normal Color Assessment and Plan - Assessment and Plan (Free Text) Plan: Chest pain Admit to tele Dr. Mccain, Cardio peoplesoft hcm consultant Troponins negative x 3 EKG (02/01/18) Sinus bradycardia @ [address]/T wave changes. ECHO (02/01/18): Normal LV fxn. Diastolic dysfunction. Dilated LA. Trace to mild MR. Moderate . Mild to moderate TR. ASA 81mg PO Daily Chronic CHF Diastolic dysfunction ECHO (02/01/18): Normal LV fxn EF 72%. Diastolic dysfunction. Dilated LA. Trace to mild MR. Moderate . Mild to moderate TR. Pt cannot tolerate beta odilia due to bradycardia Cozaar 100mg PO Daily Aortic stenosis ECHO (02/04/18): Moderate aortic stenosis. Cardio, Dr. Mccain, help appreciated - Not suitable candidate for invasive cardiac workup with intent of aortic valve repair. Will obtain 24 hour holter monitor. Dizziness Ct Head (02/01/18): No acute intracranial hemorrhage. Mild chronic white matter changes. Basal nuclei ischemic changes as described. Moderate volume loss (see full report) CXR (02/01/18): No pulm vasc congestion. NAD. Right 7th rib fracture, age indeterminate. EKG (02/01/18) Sinus bradycardia @ [address]/T wave changes. Troponins negative x 3 Carotid US negative for acute blockage UA negative Antivert 25mg PO Q8H PRN Neck pain CT cervical spine (02/04/18): multiple levels of spondylosis. No apparent fracture or spondylolisthesis. CT Thoracic spine (02/04/18): No evidence of fracture or dislocation. Improved with Tylenol Symptomatic Bradycardia EKG (02/01/18) Sinus bradycardia @ [address]/T wave changes HR 48, 50 Patient dizzy when standing Dr. Mccain - no indication for pacemaker Swollen left leg History of knee surgery Afebrile, No WBC Xray left knee (02/01/18): Lt knee arthroplasty. Hardware intact no evidence of failure. Tylenol 650mg PO Q6H PRN for pain Venous doppler LLE: negative, but limited study Dementia Oriented to only person - "for years" per live-in flight instructor Namenda 5mg PO BID Hypertension Elevated this AM Cozaar 100mg PO Daily Hypothyroidism Synthroid 150mcg PO Daily Hematuria UA 2+ blood in urine Will need outpatient workup with repeat UA Prophylaxis SCD C/I due to left leg swelling Protonix 40mg PO Daily Lovenox 40mg SC daily Disposition: Dizziness improved. Pt stable for discharge. No further workup or intervention by cardiology. Will need outpatient follow up for hematuria/ dizziness - gave Dr. Evans's number for [facility] Christian Schwarz PGY-[address] Evans
--- NOTE | 2018-02-04 10:45 | VASCLAB ---
PROCEDURE: Left Lower Extremity Venous Duplex Exam. HISTORY: Pain swelling/lower leg PRIORS: None. TECHNIQUE: Left common femoral, femoral, popliteal and posterior tibial, peroneal and great saphenous veins were evaluated. Flow was assessed with color Doppler, compressibility, assessment of phasic flow and augmentation response. Report prepared by CAROLYN Avery FINDINGS: LEFT: 1. Common Femoral Vein: 1.1. Compressibility - Fully compressible: Thrombus - None : Flow - Phasic: Augmentation -Normal: Reflux - None. 2. Femoral Vein: 2.1. Compressibility - Fully compressible: Thrombus - None: Flow - Phasic: Augmentation -Normal: Reflux - None. 3. Popliteal Vein: 3.1. Compressibility - Fully compressible: Thrombus - None: Flow - Phasic: Augmentation -Normal: Reflux - None. 4. Posterior Tibial Vein: 4.1. Compressibility - Fully compressible: Thrombus - None: Flow - Phasic: Augmentation -Normal: Reflux - None. 5. Peroneal Vein: 5.1. NOT EXAMINED 6. Great Saphenous NOT EXAMINED OTHER FINDINGS: IMPRESSION: No evidence of deep vein thrombosis for the above named, examined veins in the left lower extremity. Limited exam, due to patient intolerance to compressions.
[2018-02-04 15:51] VITALS: BP 134/77; PULSE 77; RESP 18; TEMP 97.9
--- NOTE | 2018-02-04 16:44 | CP.PCM.PN ---
Subjective - Date & Time of Evaluation Date of Evaluation: 02/04/18 Time of Evaluation: 09:20 - Subjective Subjective: clinically same Objective - Vital Signs/Intake and Output Vital Signs (last 24 hours): Temp Pulse Resp BP Pulse Ox 97.9 F 77 18 134/77 97 02/04/18 15:48 02/04/18 15:48 02/04/18 15:48 02/04/18 15:48 02/04/18 15:48 Intake and Output: 02/04/18 02/04/18 06:59 18:59 Intake Total 0 300 Balance 0 300 - Medications Medications: Current Medications Acetaminophen (Tylenol 325mg Tab) 650 mg PO Q6H PRN PRN Reason: Pain, Mild (1-3) Last Admin: 02/03/18 19:17 Dose: 650 mg Aspirin (Aspirin Chewable) 81 mg PO DAILY [facility] Last Admin: 02/04/18 09:22 Dose: 81 mg Enoxaparin Sodium (Lovenox) 40 mg SC DAILY [facility] Last Admin: 02/04/18 09:22 Dose: 40 mg Levothyroxine Sodium (Synthroid) 150 mcg PO DAILY@0630 [facility] Last Admin: 02/04/18 06:35 Dose: 150 mcg Losartan Potassium (Cozaar) 100 mg PO DAILY [facility] Last Admin: 02/04/18 09:22 Dose: 100 mg Meclizine HCl (Antivert) 25 mg PO Q8H PRN PRN Reason: Dizziness Last Admin: 02/02/18 17:11 Dose: 25 mg Memantine (Namenda) 5 mg PO BID [facility] Last Admin: 02/04/18 09:22 Dose: 5 mg Pantoprazole Sodium (Protonix Ec Tab) 40 mg PO DAILY [facility] Last Admin: 02/04/18 09:22 Dose: 40 mg - Labs Labs: 02/04/18 07:35 02/04/18 07:35 PT 11.3 SECONDS (9.7-12.2) 02/01/18 11:11 INR 1.0 02/01/18 11:11 APTT 40 SECONDS (21-34) H 02/01/18 11:11 - Constitutional Appears: Well - Head Exam Head Exam: ATRAUMATIC, NORMAL INSPECTION, NORMOCEPHALIC - Eye Exam Eye Exam: EOMI, Normal appearance, PERRL Pupil Exam: NORMAL ACCOMODATION, PERRL - ENT Exam ENT Exam: Mucous Membranes Moist, Normal Exam - Neck Exam Neck Exam: Full ROM, Normal Inspection. absent: Lymphadenopathy - Respiratory Exam Respiratory Exam: Decreased Breath Sounds - Cardiovascular Exam Cardiovascular Exam: REGULAR RHYTHM, +S1, +S2 - GI/Abdominal Exam GI & Abdominal Exam: Soft, Diminished Bowel Sounds - Rectal Exam Rectal Exam: Deferred Assessment and Plan (1) Chest pain Status: Acute (2) Dizziness Status: Acute (3) ANNALISE (acute kidney injury) Status: Acute (4) Abdominal pain Status: Acute (5) Altered mental status Status: Acute (6) DVT prophylaxis Status: Acute (7) Delirium Status: Acute (8) Diverticular disease Status: Acute (9) Knee pain Status: Acute (10) UTI (urinary tract infection) Status: Acute (11) HTN (hypertension) Status: Chronic (12) Hypothyroidism Status: Chronic (13) Lewy body dementia with behavioral disturbance Status: Chronic
--- NOTE | 2018-02-04 17:21 | CARD ---
APPROVED REPORT EKG Measurement Heart [id number] <Conclusion> Sinus bradycardia Otherwise normal ECG
--- NOTE | 2018-02-04 17:28 | PN ---
DATE: 02/04/2018 SUBJECTIVE: The patient is confused to place. She denies any dizziness. She is ambulating. No reported significant bradycardia. The lowest heart rate report today is 48. PHYSICAL EXAMINATION: VITAL SIGNS: Blood pressure 140/68, heart rate 63, temperature 97.7, respirations 20. HEENT: Normocephalic. CHEST: Clear. HEART: S1, S2 regular, grade 2/6 ejection systolic murmur over the left sternal border. ABDOMEN: Soft.. EXTREMITIES: 1+ pitting edema. LABORATORY DATA: Hemoglobin, hematocrit, white count, and platelet count today are within normal limits. Today's SMA-7 is entirely within normal limits. Venous Doppler of lower extremity, no evidence of DVT. Limited exam due to intolerance to compression. ASSESSMENT: 1. Dizziness and history of recent fall. 2. Hypothyroidism. 3. Alzheimer dementia. 4. Sinus bradycardia. 5. Aortic stenosis, however, on clinical basis. The murmur does not point to significant aortic stenosis, but rather to aortic sclerosis, and as per echocardiographic study the peak aortic gradient was 36 mmHg. RECOMMENDATIONS: Continue current aspirin, Cozaar, Namenda, Synthroid, subcutaneous Lovenox. No further cardiac workup is indicated. The Holter monitor that was placed was by the patient today, and subsequently no practical recording of tracings will be obtained. The case was discussed with the medical parasitologist. Francesco Santizo MD
== END 2018-02-04 17:39 | disposition home or self-care (01) | DRG 149 ==
LOC: C.ER 10:15 → C.6T 14:07 → INTOOBSV 14:07 → OBSVTOIN 02-03 15:22
PROVIDERS: ADMIT Internal Medicine Nephrology; ATTEND Internal Medicine Nephrology
DX: R42 Dizziness and giddiness (principal); F02.81 Dementia in other diseases classified elsewhere, unspecified severity, with behavioral disturbance; R07.89 Other chest pain; E03.9 Hypothyroidism, unspecified; G31.83 Neurocognitive disorder with Lewy bodies; I10 Essential (primary) hypertension; I35.0 Nonrheumatic aortic (valve) stenosis; I65.29 Occlusion and stenosis of unspecified carotid artery; I70.0 Atherosclerosis of aorta; J45.909 Unspecified asthma, uncomplicated; K57.90 Diverticulosis of intestine, part unspecified, without perforation or abscess without bleeding; Z86.73 Personal history of transient ischemic attack (TIA), and cerebral infarction without residual deficits; Z87.891 Personal history of nicotine dependence; Z91.81 History of falling